=== PATIENT | female | born 1995 | race Caucasian/White ===

== ENCOUNTER → 2023-11-28 | Outpatient (CLI) | payer OTHER ==
[2023-11-28 16:46] LABS: Source, Urine Clean Catch
[2023-11-28 18:45] LABS: Appearance, Urine Hazy (Clear); Bilirubin, Urine Neg (Neg); Blood, Urine Neg (Neg); Color, Urine Yellow (P-Yellow); Glucose Qualitative, Urine Neg (Neg); Ketones, Urine Neg (Neg); Leukocyte Esterase, Urine 3+ (Neg); Nitrite, Urine Neg (Neg); Protein, Urine Neg (Neg); Specific Gravity, Urine 1.015 (1.003-1.022); Urobilinogen, Urine NORM (Normal); pH, Urine 6.5 (5.0-8.0)
[2023-11-28 19:07] LABS: Amorphous Light (0-Heavy); Bacteria Many /hpf; Squamous Epithelial Cells Mod /hpf (Few)
[2023-11-28 20:00] LABS: Bacterial Vaginosis PCR Negative (NEGATIVE); Candida glabrata-krusei, PCR NOT DETECTED (NOT DETECT)
[2023-11-28 20:47] LABS: Candida Group, PCR DETECTED (NOT DETECT)
== END | disposition home or self-care (01) ==
LOC: LAB 16:43 → LAB SHORT 16:43
PROVIDERS: Advanced Practice Midwife
DX: N76.0 Acute vaginitis (principal); R30.0 Dysuria
CPT/HCPCS: 81001; 87086; 87481; 87661; 87801

== ENCOUNTER → 2024-05-08 | Outpatient (CLI) | payer OTHER | LOC: LAB SHORT 11:36 → LAB 11:36 | DX: Z34.90 Encounter for supervision of normal pregnancy, unspecified, unspecified trimester (principal) | CPT/HCPCS: 87081; 87150 ==

== ENCOUNTER 2024-05-31 08:00 | Inpatient (IN) | payer OTHER ==
[~2024-05-31] VITALS: Ht 157.5 cm; Wt 62.7 kg
[2024-06-04] MEDS ORDERED: PRENATAL TABLE1 EAC2 PO ×2 (15:27)
[2024-06-04] MEDS ORDERED: PROBIOTIC1 EA14 PO ×2 (15:28)
[2024-06-04] MEDS ORDERED: CHOLINE500 MG PO ×2 (15:28)
[2024-06-04] MEDS ORDERED: MAGNESIUM OXID500 MG PO ×2 (15:28)
[2024-06-05 05:49] VITALS: BP 138/89
[2024-06-05] MEDS ORDERED: CeFAZolin Sodium 2,000 MG in NS 100 ML IV SCH (06:00)
[2024-06-05] MEDS ORDERED: Lactated Ringer's 1,000 ML IV SCH ×2 (06:00)
[2024-06-05] MEDS ORDERED: Citric Acid/Sodium Citrate 30 ML BTL PO SCH (06:00)
[2024-06-05] MEDS ORDERED: Metoclopramide HCl 5MG / ML 2ML Vial IV SCH (06:00)
[2024-06-05 06:28] LABS: BASOPHILS ABSOLUTE AUTO 0.04 K/mm3 (0.00-0.23); BASOPHILS PERCENT AUTO 0 % (0-2); EOSINOPHILS ABSOLUTE AUTO 0.07 K/mm3 (0.00-0.68); EOSINOPHILS PERCENT AUTO 1 % (0-6); Hematocrit 38.6 % (33.0-51.0); Hemoglobin 13.5 g/dL (11.5-16.0); IMMATURE GRAN ABSOLUTE AUTO 0.11 K/mm3 (0.00-0.10); IMMATURE GRAN PERCENT AUTO 1 % (0-1); LYMPHOCYTES ABSOLUTE AUTO 1.89 K/mm3 (0.84-5.20); LYMPHOCYTES PERCENT AUTO 20 % (21-46); MONOCYTES ABSOLUTE AUTO 1.09 K/mm3 (0.16-1.47); MONOCYTES PERCENT AUTO 12 % (4-13); Mean Corpuscular HGB 31.1 pg (26.0-34.0); Mean Corpuscular Volume 89 fL (80-100); Mean Platelet Volume 10.3 fL (9.1-12.4); NEUTROPHILS ABSOLUTE AUTO 6.29 K/mm3 (1.96-9.15); NEUTROPHILS PERCENT AUTO 66 % (41-73); Platelet Count 292 K/mm3 (150-400); RDW Coefficient Variation 12.5 % (11.7-14.2); RDW Standard Deviation 40.4 fL (35.1-46.3); Red Blood Cell Count 4.34 M/mm3 (3.80-5.20); White Blood Cell Count 9.49 K/mm3 (4.00-11.30)
[2024-06-05] MEDS ORDERED: Misoprostol 200 MCG Tab PR PRN (06:35)
[2024-06-05] MEDS ORDERED: Methylergonovine Maleate 0.2MG / ML 1ML Amp IM PRN (06:35)
[2024-06-05] MEDS ORDERED: Misoprostol 200 MCG Tab BC PRN (06:35)
[2024-06-05] MEDS ORDERED: OXYTOCIN/RINGER'S LACTATE 500 ML IV PRN (06:35)
[2024-06-05] MEDS ORDERED: Carboprost Tromethamine 250 MCG/ML 1ML Amp IM PRN (06:35)
[2024-06-05] MEDS ORDERED: Oxytocin 10 Unit / ML Vial IM PRN (06:35)
[2024-06-05] MEDS ORDERED: Tranexamic Acid 100 ML IV SCH (06:40)
[2024-06-05] MEDS ORDERED: Ondansetron HCl 2 MG / ML 2ML Vial IV PRN (06:40)
[2024-06-05] MEDS ORDERED: Calcium Carbonate 500 MG Tab Chew PO PRN (06:40)
[2024-06-05] MEDS ORDERED: Acetaminophen 500 MG Tab PO PRN (06:40)
[2024-06-05] MEDS ORDERED: Clindamycin 600mg in D5W 50 ML IV SCH (08:20)
[2024-06-05] MEDS ORDERED: NS IV SCH (08:25)
[2024-06-05] MEDS ORDERED: GENTAMICIN SULFATE IV SCH (08:25)
[2024-06-06] MEDS ORDERED: Metoclopramide HCl 5MG / ML 2ML Vial IV SCH (06:00)
[2024-06-06] MEDS ORDERED: Citric Acid/Sodium Citrate 30 ML BTL PO SCH (06:00)
== END 2024-06-05 11:56 | disposition home or self-care (01) | DRG 833 ==
LOC: BC 06-05 05:36
PROVIDERS: Obstetrics & Gynecology; ADMIT Obstetrics & Gynecology
DX: O32.1XX0 Maternal care for breech presentation, not applicable or unspecified (principal); Z3A.39 39 weeks gestation of pregnancy
CPT/HCPCS: 36415; 59025; 85025; 86850; 86900; 86901; 86923; J7120

== ENCOUNTER 2024-06-06 05:40 | Inpatient (IN) | payer OTHER ==
[2024-06-06] VITALS (16 sets, daily range): BP systolic 96–140; BP diastolic 67–88
[~2024-06-06] VITALS: Ht 157.5 cm; Wt 63.6 kg
[~2024-06-06 05:40] MED LIST: CHOLINE500 MG PO; MAGNESIUM OXID500 MG PO; PRENATAL TABLE1 EAC2 PO; PROBIOTIC1 EA14 PO
[2024-06-06] MEDS ORDERED: Citric Acid/Sodium Citrate 30 ML BTL PO SCH (05:55)
[2024-06-06] MEDS ORDERED: NS IV SCH ×3 (05:55→06:25)
[2024-06-06] MEDS ORDERED: GENTAMICIN SULFATE IV SCH ×3 (05:55→06:25)
[2024-06-06] MEDS ORDERED: Lactated Ringer's 1,000 ML IV SCH ×2 (05:55)
[2024-06-06] MEDS ORDERED: Metoclopramide HCl 5MG / ML 2ML Vial IV SCH (05:55)
[2024-06-06] MEDS ORDERED: Clindamycin 600mg in D5W 50 ML IV SCH ×2 (05:55→06:10)
[2024-06-06 06:41] LABS: BASOPHILS ABSOLUTE AUTO 0.03 K/mm3 (0.00-0.23); BASOPHILS PERCENT AUTO 0 % (0-2); EOSINOPHILS ABSOLUTE AUTO 0.11 K/mm3 (0.00-0.68); EOSINOPHILS PERCENT AUTO 1 % (0-6); Hematocrit 38.7 % (33.0-51.0); Hemoglobin 13.4 g/dL (11.5-16.0); IMMATURE GRAN PERCENT AUTO 1 % (0-1); LYMPHOCYTES ABSOLUTE AUTO 1.86 K/mm3 (0.84-5.20); LYMPHOCYTES PERCENT AUTO 23 % (21-46); MONOCYTES ABSOLUTE AUTO 1.04 K/mm3 (0.16-1.47); MONOCYTES PERCENT AUTO 13 % (4-13); Mean Corpuscular HGB 31.2 pg (26.0-34.0); Mean Corpuscular HGB Conc 34.6 g/dL (31.5-36.5); Mean Corpuscular Volume 90 fL (80-100); Mean Platelet Volume 10.6 fL (9.1-12.4); NEUTROPHILS ABSOLUTE AUTO 4.94 K/mm3 (1.96-9.15); NEUTROPHILS PERCENT AUTO 61 % (41-73); Platelet Count 269 K/mm3 (150-400); RDW Coefficient Variation 12.6 % (11.7-14.2); RDW Standard Deviation 41.3 fL (35.1-46.3); White Blood Cell Count 8.08 K/mm3 (4.00-11.30)
[2024-06-06] MEDS ORDERED: FentaNYL Citrate 50 MCG/ML 2 ML Injection ONE (07:12)
[2024-06-06] MEDS ORDERED: Phenylephrine HCl 100 MCG/ML-NS 10MLSYR (1MG/10ML) ONE (07:13)
[2024-06-06] MEDS ORDERED: Oxytocin 10 Unit / ML Vial ONE ×2 (07:14→08:29)
[2024-06-06] MEDS ORDERED: Simethicone 80 MG Chew PO PRN (09:10)
[2024-06-06] MEDS ORDERED: Acetaminophen 500 MG Tab PO PRN (09:10)
[2024-06-06] MEDS ORDERED: DiphenhydrAMINE HCL 25 MG Cap PO PRN (09:10)
[2024-06-06] MEDS ORDERED: Metoclopramide HCl 10 MG Tab PO PRN (09:15)
[2024-06-06] MEDS ORDERED: Promethazine HCl 25 MG Tab PO PRN (09:15)
[2024-06-06] MEDS ORDERED: Magnesium Hydroxide Conc 10 ML UDC PO PRN (09:15)
[2024-06-06] MEDS ORDERED: Carboprost Tromethamine 250 MCG/ML 1ML Amp IM PRN (09:15)
[2024-06-06] MEDS ORDERED: Misoprostol 200 MCG Tab PR PRN (09:15)
[2024-06-06] MEDS ORDERED: Methylergonovine Maleate 0.2MG / ML 1ML Amp IM PRN (09:15)
[2024-06-06] MEDS ORDERED: Ondansetron HCl 2 MG / ML 2ML Vial IV PRN (09:20)
[2024-06-06] MEDS ORDERED: OxyCODONE HCL 5 MG TAB PO PRN ×2 (09:20)
[2024-06-06] MEDS ORDERED: OXYTOCIN/RINGER'S LACTATE 500 ML IV SCH (09:20)
[2024-06-06] MEDS ORDERED: Lanolin Cream TOP PRN (09:20)
[2024-06-06] MEDS ORDERED: Ketorolac Tromethamine 30mg Vial IV SCH (10:00)
[2024-06-06] MEDS ORDERED: Docusate Sodium 100 MG Cap PO SCH (21:00)
[2024-06-07 00:29] VITALS: BP 121/74
--- NOTE | 2024-06-07 01:40 | NUR ---
FOCUS: AMBULATION + VOID TRAIN OPERATIONS SUPERVISOR WAS A STAND BY ASSIST FOR PT AMBULATION TO THE BATHROOM. PT SHOWERED AND VOIDED. TRAIN OPERATIONS SUPERVISOR ASSISTED PT WITH PERIPAD CHANGE, BED CHANGE, AND AMBULATION BACK TO BED.
--- NOTE | 2024-06-07 02:07 | NUR ---
FOCUS: PT STATUS MANAGEMENT ASSISTANT REC'D PT INTO CARE @ 1950. DENIES HEADACHE, BLURRY VISION, AND PAIN AT REST. MANAGEMENT ASSISTANT DISCUSSING INCISION CARE, AMB, PERICARE, AND PAIN MANAGEMENT OPTIONS WITH PATIENT. MANAGEMENT ASSISTANT WAS A STAND BY ASSIST WITH PT TO THE BR @ 1999. PT SHOWERED AND VOIDED. PERIPADS AND LINENS CHANGED. MANAGEMENT ASSISTANT ASSISTED PT BACK INTO BED. MANAGEMENT ASSISTANT DISCUSSED FREQ OF FEEDS, DIAPER CHANGES, HUNGER CUES, AND SIGNS OF A GOOD LATCH WITH PT AND PARTNER. @2100: MANAGEMENT ASSISTANT ASSISTED PT WITH LATCHING NB TO BOTH LEFT AND RIGHT BREASTS. @0030: MANAGEMENT ASSISTANT IN ROOM FOR PT AND NB VITALS. NO CONCERNS. MANAGEMENT ASSISTANT SETTLED NB INTO BASSINET. PT AWARE TO CALL MANAGEMENT ASSISTANT FOR BF ASSISTS, PAIN MANAGEMENT, ANY OTHER CONCERNS. CALL ANDINO WITHIN REACH
[2024-06-07 04:20] VITALS: BP 132/65
[2024-06-07 04:22] VITALS: BP 128/64
[2024-06-07 06:58] LABS: BASOPHILS ABSOLUTE AUTO 0.03 K/mm3 (0.00-0.23); BASOPHILS PERCENT AUTO 0 % (0-2); EOSINOPHILS PERCENT AUTO 1 % (0-6); Hematocrit 36.1 % (33.0-51.0); Hemoglobin 12.3 g/dL (11.5-16.0); IMMATURE GRAN ABSOLUTE AUTO 0.11 K/mm3 (0.00-0.10); IMMATURE GRAN PERCENT AUTO 1 % (0-1); LYMPHOCYTES ABSOLUTE AUTO 1.73 K/mm3 (0.84-5.20); LYMPHOCYTES PERCENT AUTO 14 % (21-46); MONOCYTES ABSOLUTE AUTO 1.07 K/mm3 (0.16-1.47); MONOCYTES PERCENT AUTO 8 % (4-13); Mean Corpuscular HGB 31.3 pg (26.0-34.0); Mean Corpuscular HGB Conc 34.1 g/dL (31.5-36.5); Mean Corpuscular Volume 92 fL (80-100); Mean Platelet Volume 10.4 fL (9.1-12.4); NEUTROPHILS ABSOLUTE AUTO 9.64 K/mm3 (1.96-9.15); NEUTROPHILS PERCENT AUTO 76 % (41-73); Platelet Count 230 K/mm3 (150-400); RDW Standard Deviation 43.5 fL (35.1-46.3); Red Blood Cell Count 3.93 M/mm3 (3.80-5.20); White Blood Cell Count 12.68 K/mm3 (4.00-11.30)
[2024-06-07] MEDS ORDERED: Ketorolac Tromethamine 30mg Vial IV ONE (08:15)
[2024-06-07 08:23] VITALS: BP 125/81
[2024-06-07] MEDS ORDERED: Prenatal Vit/FE Fumarate/FA 1 Tab PO SCH (09:00)
[2024-06-07] MEDS ORDERED: Ibuprofen 400 MG Tab PO SCH (12:00)
[2024-06-07 16:40] VITALS: BP 140/67
[2024-06-07 20:12] VITALS: BP 123/81
[2024-06-08 00:58] VITALS: BP 118/69
[2024-06-08 05:45] VITALS: BP 117/63
[2024-06-08 07:45] VITALS: BP 106/64
[2024-06-08] MEDS ORDERED: OXYC5 PO ×2 (09:40)
[2024-06-08] MEDS ORDERED: IBUP800 PO ×2 (09:40)
== END 2024-06-08 12:10 | disposition home or self-care (01) | DRG 788 ==
LOC: BC 05:40
PROVIDERS: ADMIT Obstetrics & Gynecology
PROC: 10D00Z1 Extraction of Products of Conception, Low, Open Approach (ICD-10-PCS; principal; 2024-06-06 07:30)
DX: O48.0 Post-term pregnancy (principal); O64.1XX0 Obstructed labor due to breech presentation, not applicable or unspecified; Z3A.40 40 weeks gestation of pregnancy; Z37.0 Single live birth; Z88.1 Allergy status to other antibiotic agents; Z88.0 Allergy status to penicillin
CPT/HCPCS: 36415; 59025; 85025; 86850; 86900; 86901; 86923; A9270; J1580; J1885; J2371; J2590; J2765; J3010; J7120